=== PATIENT | female | born 1945 | race Caucasian/White ===

== ENCOUNTER 2021-03-20 18:06 | Emergency (ER) | payer MEDICARE ==
[~2021-03-20] VITALS: Ht 154.9 cm; Wt 79.0 kg
[2021-03-20] MEDS ORDERED: LABETALOL HCL 5 MG/ML 20 ML VIAL IVP PRN (18:15)
[2021-03-20 18:27] LABS: BASOPHILS % (AUTO) 1.1 % (0.0-2.0); EOSINOPHILS % (AUTO) 2.4 % (1.0-6.0); HEMATOCRIT 36.8 % (36-46); LYMPHOCYTES # (AUTO) 3.3 K/uL (1.0-4.8); MEAN CORPUSCULAR HEMOGLOBIN 30.8 pg (26.0-34.0); MEAN CORPUSCULAR HGB CONC 32.6 G/dL (31.0-37.0); MEAN CORPUSCULAR VOLUME 94 fL (80-100); MONOCYTES # (AUTO) 0.4 K/uL (0.1-1.0); MONOCYTES % (AUTO) 4.8 % (2.0-9.0); NEUTROPHILS # (AUTO) 4.8 K/uL (1.8-7.7); NEUTROPHILS % (AUTO) 54.7 % (40.0-70.0); PLATELET COUNT (AUTO) 273 K/uL (150-450); RED CELL DISTRIBUTION WIDTH 12.9 % (11.5-14.5)
[2021-03-20] MEDS ORDERED: IOHEXOL 350 MG/ML 75 ML VIAL ONE (18:28)
[2021-03-20] MEDS ORDERED: SODIUM CHLORIDE 0.9% 100 ML ONE (18:28)
[2021-03-20 18:36] LABS: CALCIUM, TOTAL 8.3 mg/dL (8.8-10.5); CREATININE 1.23 mg/dL (0.60-1.30); POTASSIUM 4.5 mmol/L (3.5-5.1)
[2021-03-20 18:41] LABS: INR 0.9 (0.9-1.1); PROTHROMBIN TIME 10.1 SEC (9.4-11.6)
[2021-03-20 18:42] LABS: ALBUMIN 3.3 g/dL (3.4-5.0); BILIRUBIN,TOTAL 0.3 mg/dL (0.1-1.0); TOTAL PROTEIN, SERUM 7.1 g/dL (6.4-8.2)
[2021-03-20] MEDS ORDERED: ATOR40TA28 PO (19:34)
[2021-03-20] MEDS ORDERED: HYDR25TA2 PO (19:34)
[2021-03-20] MEDS ORDERED: INSNOV SQ (19:34)
[2021-03-20] MEDS ORDERED: METF-960 PO (19:34)
[2021-03-20] MEDS ORDERED: LOSA50TA37 PO (19:34)
[2021-03-20] MEDS ORDERED: ASPI-1450 PO (19:34)
[2021-03-20] MEDS ORDERED: ATEN-72 PO (19:34)
[2021-03-20] MEDS ORDERED: INSU100V12 SQ (19:34)
[2021-03-20] MEDS ORDERED: ASPIRIN 325 MG TABLET PO ONE (20:00)
[2021-03-20] MEDS ORDERED: ACETAMINOPHEN 325 MG TABLET PO PRN (20:15)
[2021-03-20] MEDS ORDERED: NiCARDipine HCL 25 MG in SODIUM CHLORIDE 0.9% 240 ML IV PRN (20:15)
[2021-03-20] MEDS ORDERED: ONDANSETRON HCL 4 MG/2 ML VIAL IVP PRN (20:15)
[2021-03-20 20:16] LABS: APPEARANCE,URINE CLEAR (CLEAR); BILIRUBIN,URINE NEGATIVE (NEGATIVE); GLUCOSE, URINE (UA) NEGATIVE (NEGATIVE); KETONES,URINE NEGATIVE (NEGATIVE); LEUKOCYTE ESTERASE ,URINE NEGATIVE (NEGATIVE); NITRATE,URINE NEGATIVE (NEGATIVE); OCCULT BLOOD,URINE NEGATIVE (NEGATIVE); PROTEIN,URINE NEGATIVE (NEGATIVE)
[2021-03-20 20:24] LABS: COVID AG,FIA SOURCE NASOPHARYNGEAL
[2021-03-20 20:49] LABS: AMPHET/METH SCREEN,URINE NEGATIVE (NEGATIVE); BARBITURATE SCREEN, URINE NEGATIVE (NEGATIVE); BENZODIAZEPINES SCREEN,URINE NEGATIVE (NEGATIVE); CANNABINOID SCREEN,URINE NEGATIVE (NEGATIVE); COCAINE SCREEN,URINE NEGATIVE (NEGATIVE); METHADONE SCREEN, URINE NEGATIVE (NEGATIVE); OPIATE SCREEN,URINE NEGATIVE (NEGATIVE)
[2021-03-20 20:50] LABS: PHENCYCLIDINE SCREEN,URINE NEGATIVE (NEGATIVE)
[2021-03-20 21:31] LABS: BACTERIA,URINE None Seen /HPF (None Seen); RBC,URINE None Seen /HPF (0-2); SQUAMOUS EPITHELIAL CELL,UR Rare /LPF (None Seen); WBC,URINE 0-2 /HPF (0-5)
[2021-03-21] MEDS ORDERED: HEPARIN SODIUM,PORCINE 5,000 UNITS/ML VIAL SQ SCH
[2021-03-21 05:45] VITALS: BP 119/73
== END 2021-03-21 05:54 | disposition short-term general hospital (02) ==
LOC: EMS 18:09
DX: G45.9 Transient cerebral ischemic attack, unspecified (principal); I16.1 Hypertensive emergency; Z20.822 Contact with and (suspected) exposure to COVID-19
CPT/HCPCS: 36415; 70450; 71045; 80053; 80307; 81001; 84484; 85025; 85610; 85730; 86850; 86900; 86901; 87426; 93005; 96365; 96366; 96372; 99291; A9575; J3490 ×2; J7050 ×2